=== PATIENT | male | born 1950 | race Caucasian/White ===

== ENCOUNTER 2016-08-03 15:24 | Outpatient (CLI) | payer MEDICARE, OTHER | END 2016-08-03 15:25 | disposition home or self-care (01) | DX: I48.91 Unspecified atrial fibrillation (principal); Z79.01 Long term (current) use of anticoagulants ==

== ENCOUNTER 2016-08-18 08:00 | Outpatient (CLI) | payer MEDICARE, OTHER | END 2016-08-18 08:01 | disposition home or self-care (01) | DX: I48.91 Unspecified atrial fibrillation (principal); Z79.01 Long term (current) use of anticoagulants ==